=== PATIENT | male | born 1965 | race Caucasian/White ===

== ENCOUNTER 2023-12-17 14:39 | Emergency (ER) | payer OTHER ==
[2023-12-17 14:57] VITALS: BP 162/102; PULSE 77; RESP 16; TEMP 98; BMI 25.2
[2023-12-17] MEDS ORDERED: CEPHALEXIN MONOHYDRATE 500 MG CAPSULE (UD) ONE (18:11)
[2023-12-17] MEDS: CEPHALEXIN MONOHYDRATE 500 MG CAPSULE (UD) PO ONE (18:16)
== END 2023-12-17 18:14 | disposition home or self-care (01) ==
LOC: FER 14:39
PROC: 0HQFXZZ Repair Right Hand Skin, External Approach (ICD-10-PCS; principal; 2023-12-17)
DX: S61.216A Laceration without foreign body of right little finger without damage to nail, initial encounter (principal); W20.8XXA Other cause of strike by thrown, projected or falling object, initial encounter; Y99.0 Civilian activity done for income or pay
CPT/HCPCS: 73140-TC-RT-FY; 99283-25